=== PATIENT | female | born 1990 | race Caucasian/White ===

== ENCOUNTER 2018-12-03 19:17 | Emergency (ER) | payer MEDICAID ==
[~2018-12-03] VITALS: Ht 157.5 cm; Wt 54.5 kg
[2018-12-03 19:35] VITALS: BP 115/89
[2018-12-03 20:37] LABS: APPEARANCE,URINE CLOUDY (CLEAR); GLUCOSE, URINE (UA) NEGATIVE (NEGATIVE); KETONES,URINE NEGATIVE (NEGATIVE); LEUKOCYTE ESTERASE ,URINE MODERATE (NEGATIVE); NITRATE,URINE POSITIVE (NEGATIVE); OCCULT BLOOD,URINE NEGATIVE (NEGATIVE); PROTEIN,URINE POS 1+ (NEGATIVE)
[2018-12-03 20:38] LABS: BILIRUBIN,URINE PRELIM. POSITIVE (NEGATIVE)
[2018-12-03 20:42] LABS: BACTERIA,URINE Many /HPF (None Seen); RBC,URINE 0-2 /HPF (0-2); SQUAMOUS EPITHELIAL CELL,UR Moderate /LPF (None Seen)
[2018-12-03 20:43] LABS: CALCIUM OXALATE CRYSTALS,UR Few /LPF (None Seen); WBC,URINE 26-50 /HPF (0-5)
[2018-12-03] MEDS ORDERED: CefTRIAXone SODIUM 1 GM/VIAL IM ONE (21:15)
[2018-12-03] MEDS ORDERED: AZITHROMYCIN 250 MG TABLET PO ONE (21:15)
== END 2018-12-03 22:05 | disposition home or self-care (01) ==
LOC: EMS 19:20
DX: N39.0 Urinary tract infection, site not specified (principal); F19.10 Other psychoactive substance abuse, uncomplicated; F41.9 Anxiety disorder, unspecified; F32.9 Major depressive disorder, single episode, unspecified
CPT/HCPCS: 81001; 81025; 87077; 87086; 87186; 96372; 99283; J0696

== ENCOUNTER 2020-04-10 17:10 | Inpatient (IN) | payer MEDICAID, OTHER ==
[~2020-04-10] VITALS: Ht 160 cm; Wt 63.5 kg
[2020-04-10] MEDS ORDERED: KETOROLAC TROMETHAMINE 30 MG/ML VIAL IVP ONE (20:00)
[2020-04-10] MEDS ORDERED: ONDANSETRON HCL 4 MG/2 ML VIAL IVP ONE (20:00)
[2020-04-10] MEDS ORDERED: SODIUM CHLORIDE 0.9% 1,000 ML IV ONE (20:00)
[2020-04-10 20:42] LABS: ANION GAP 12 mmol/L (8-16); CALCIUM, TOTAL 9.6 mg/dL (8.8-10.5); CARBON DIOXIDE 20 mmol/L (22-29); CHLORIDE 107 mmol/L (98-107); CREATININE 0.83 mg/dL (0.60-1.30); GLOMERULAR FILTR. RATE CALC > 60 mL/min (>60); GLUCOSE,RANDOM 100 mg/dL (70-110); POTASSIUM 4.1 mmol/L (3.5-5.1); SODIUM SERUM 139 mmol/L (136-145); UREA NITROGEN, BLOOD 9 mg/dL (7-18)
[2020-04-10 20:47] LABS: ALANINE AMINOTRANSFERASE 43 U/L (12-78); ALBUMIN 3.4 g/dL (3.4-5.0); ALKALINE PHOSPHATASE 73 U/L (46-116); ASPARTATE AMINOTRANSFERASE 57 U/L (15-37); BILIRUBIN,TOTAL 0.7 mg/dL (0.1-1.0); TOTAL PROTEIN, SERUM 8.4 g/dL (6.4-8.2)
[2020-04-10 21:10] LABS: BASOPHILS % (AUTO) 0.5 % (0.0-2.0); EOSINOPHILS % (AUTO) 0.3 % (1.0-6.0); HEMATOCRIT 41.1 % (36-46); HEMOGLOBIN 14.5 g/dL (12.0-16.0); LYMPHOCYTES # (AUTO) 3.5 K/uL (1.0-4.8); LYMPHOCYTES % (AUTO) 32.1 % (22.0-44.0); MEAN CORPUSCULAR HEMOGLOBIN 29.9 pg (26.0-34.0); MEAN CORPUSCULAR HGB CONC 35.3 G/dL (31.0-37.0); MEAN CORPUSCULAR VOLUME 85 fL (80-100); MONOCYTES # (AUTO) 0.5 K/uL (0.1-1.0); MONOCYTES % (AUTO) 4.9 % (2.0-9.0); NEUTROPHILS # (AUTO) 6.8 K/uL (1.8-7.7); NEUTROPHILS % (AUTO) 62.2 % (40.0-70.0); PLATELET COUNT (AUTO) 256 K/uL (150-450); RED BLOOD CELL COUNT(AUTO) 4.85 MIL/uL (4.00-5.20); RED CELL DISTRIBUTION WIDTH 12.2 % (11.5-14.5)
[2020-04-10] MEDS ORDERED: ACETAMINOPHEN 325 MG TABLET PO PRN ×3 (21:15→22:30)
[2020-04-10] MEDS ORDERED: ONDANSETRON HCL 4 MG/2 ML VIAL IVP PRN (21:15)
[2020-04-10 21:20] LABS: COVID AG,FIA SOURCE NASOPHARYNGEAL
[2020-04-10] MEDS ORDERED: DICYCLOMINE HCL 10 MG CAPSULE PO PRN (22:30)
[2020-04-10] MEDS ORDERED: IBUPROFEN 600 MG TABLET PO PRN (22:30)
[2020-04-10] MEDS ORDERED: CloNIDine HCL 0.1 MG TABLET PO PRN (22:30)
[2020-04-10] MEDS ORDERED: LOPERAMIDE HCL 2 MG/15 ML SUSPENSION UDCUP PO PRN (22:30)
[2020-04-10] MEDS ORDERED: BACLOFEN 10 MG TABLET PO PRN (22:30)
[2020-04-10] MEDS ORDERED: MAG HYDROX/AL HYDROX/SIMETH ES 30 ML SUSPENSION UDCUP PO PRN ×2 (22:30)
[2020-04-10] MEDS ORDERED: BISACODYL 10 MG RECTAL RECTAL SUPPOSITORY PR PRN (22:30)
[2020-04-10] MEDS ORDERED: ZOLPIDEM TARTRATE 5 MG TABLET PO PRN (22:30)
[2020-04-10] MEDS: LORazepam 1 MG TABLET PO PRN (22:45)
[2020-04-10] MEDS: SODIUM CHLORIDE 0.45% 1,000 ML IV SCH (23:27)
[2020-04-11] MEDS: ChlordiazePOXIDE HCL 25 MG CAPSULE PO SCH ×4 (00:34→17:57)
[2020-04-11 03:39] VITALS: BP 107/73
[2020-04-11] MEDS: CloNIDine HCL 0.1 MG TABLET PO SCH ×4 (06:34→20:40)
[2020-04-11 07:56] VITALS: BP 119/72
[2020-04-11] MEDS: MULTIVITAMINS, THERAPEUTIC TABLET PO SCH (09:46)
[2020-04-11] MEDS: THIAMINE 100 MG TABLET PO SCH (09:46)
[2020-04-11] MEDS: FOLIC ACID 1 MG TABLET PO SCH (09:46)
[2020-04-11] MEDS: LORazepam 1 MG TABLET PO PRN (09:48)
[2020-04-11] MEDS ORDERED: METHADONE HCL 10 MG TABLET PO ONE (10:06)
[2020-04-11 11:30] VITALS: BP 113/64
[2020-04-11] MEDS: SODIUM CHLORIDE 0.45% 1,000 ML IV SCH (12:45)
[2020-04-11 15:48] VITALS: BP 102/61
[2020-04-11 19:43] VITALS: BP 93/51
[2020-04-12] VITALS (7 sets, daily range): BP systolic 91–114; BP diastolic 51–70
[2020-04-12] MEDS: SODIUM CHLORIDE 0.45% 1,000 ML IV SCH ×2 (00:11→13:39)
[2020-04-12] MEDS: ChlordiazePOXIDE HCL 25 MG CAPSULE PO SCH ×4 (00:11→18:34)
[2020-04-12] MEDS: CloNIDine HCL 0.1 MG TABLET PO SCH ×4 (05:41→22:00)
[2020-04-12] MEDS: MULTIVITAMINS, THERAPEUTIC TABLET PO SCH (08:36)
[2020-04-12] MEDS: FOLIC ACID 1 MG TABLET PO SCH (08:36)
[2020-04-12] MEDS: THIAMINE 100 MG TABLET PO SCH (08:36)
[2020-04-12] MEDS ORDERED: METHADONE HCL 10 MG TABLET PO ONE (09:00)
[2020-04-12 17:00] LABS: BASOPHILS % (AUTO) 1.2 % (0.0-2.0); EOSINOPHILS % (AUTO) 5.2 % (1.0-6.0); LYMPHOCYTES # (AUTO) 2.9 K/uL (1.0-4.8); LYMPHOCYTES % (AUTO) 37.3 % (22.0-44.0); MEAN CORPUSCULAR HEMOGLOBIN 29.6 pg (26.0-34.0); MEAN CORPUSCULAR HGB CONC 34.2 G/dL (31.0-37.0); MEAN CORPUSCULAR VOLUME 86 fL (80-100); MONOCYTES # (AUTO) 0.3 K/uL (0.1-1.0); MONOCYTES % (AUTO) 4.2 % (2.0-9.0); NEUTROPHILS % (AUTO) 52.1 % (40.0-70.0); PLATELET COUNT (AUTO) 215 K/uL (150-450); RED BLOOD CELL COUNT(AUTO) 4.75 MIL/uL (4.00-5.20); RED CELL DISTRIBUTION WIDTH 12.4 % (11.5-14.5)
[2020-04-12 17:21] LABS: ALANINE AMINOTRANSFERASE 35 U/L (12-78); ALBUMIN 2.8 g/dL (3.4-5.0); ALKALINE PHOSPHATASE 62 U/L (46-116); ANION GAP 9 mmol/L (8-16); ASPARTATE AMINOTRANSFERASE 22 U/L (15-37); BILIRUBIN,TOTAL 0.3 mg/dL (0.1-1.0); CALCIUM, TOTAL 8.9 mg/dL (8.8-10.5); CARBON DIOXIDE 25 mmol/L (22-29); CHLORIDE 105 mmol/L (98-107); CREATININE 0.92 mg/dL (0.60-1.30); GLOMERULAR FILTR. RATE CALC > 60 mL/min (>60); GLUCOSE,RANDOM 118 mg/dL (70-110); POTASSIUM 4.1 mmol/L (3.5-5.1); SODIUM SERUM 139 mmol/L (136-145); TOTAL PROTEIN, SERUM 6.8 g/dL (6.4-8.2); UREA NITROGEN, BLOOD 11 mg/dL (7-18)
[2020-04-13] MEDS: ChlordiazePOXIDE HCL 25 MG CAPSULE PO SCH ×4 (01:01→18:12)
[2020-04-13] MEDS: SODIUM CHLORIDE 0.45% 1,000 ML IV SCH ×2 (03:31→16:29)
[2020-04-13 03:54] VITALS: BP 93/53
[2020-04-13] MEDS: CloNIDine HCL 0.1 MG TABLET PO SCH ×4 (06:00→22:00)
[2020-04-13 07:20] VITALS: BP 96/58
[2020-04-13] MEDS: MULTIVITAMINS, THERAPEUTIC TABLET PO SCH (08:37)
[2020-04-13] MEDS: FOLIC ACID 1 MG TABLET PO SCH (08:38)
[2020-04-13] MEDS: THIAMINE 100 MG TABLET PO SCH (08:38)
[2020-04-13] MEDS: LORazepam 1 MG TABLET PO PRN (08:42)
[2020-04-13] MEDS ORDERED: METHADONE HCL 10 MG TABLET PO ONE (09:00)
[2020-04-13 11:18] VITALS: BP 96/60
[2020-04-13] MEDS: MAGNESIUM HYDROXIDE SUSPENSION 30 ML UDCUP PO PRN (13:36)
[2020-04-13 15:30] VITALS: BP 95/63
[2020-04-13 19:51] VITALS: BP 95/46
[2020-04-13 23:35] VITALS: BP 91/48
[2020-04-14] MEDS: ChlordiazePOXIDE HCL 25 MG CAPSULE PO SCH ×4 (00:57→18:15)
[2020-04-14] MEDS: TraZODone HCL 50 MG TABLET PO PRN ×2 (01:02→21:42)
[2020-04-14 04:39] VITALS: BP 104/49
[2020-04-14] MEDS: CloNIDine HCL 0.1 MG TABLET PO SCH ×4 (05:15→21:42)
[2020-04-14] MEDS: SODIUM CHLORIDE 0.45% 1,000 ML IV SCH ×2 (06:15→21:43)
[2020-04-14 07:34] VITALS: BP 105/48
[2020-04-14] MEDS: MULTIVITAMINS, THERAPEUTIC TABLET PO SCH (08:27)
[2020-04-14] MEDS: THIAMINE 100 MG TABLET PO SCH (08:27)
[2020-04-14] MEDS: FOLIC ACID 1 MG TABLET PO SCH (08:27)
[2020-04-14] MEDS: LORazepam 1 MG TABLET PO PRN (08:29)
[2020-04-14] MEDS: MAGNESIUM HYDROXIDE SUSPENSION 30 ML UDCUP PO PRN (08:48)
[2020-04-14] MEDS ORDERED: METHADONE HCL 10 MG TABLET PO ONE (09:00)
[2020-04-14 11:20] VITALS: BP 94/45
[2020-04-14 15:59] VITALS: BP 94/47
[2020-04-14 20:00] VITALS: BP 106/57
[2020-04-15] VITALS (7 sets, daily range): BP systolic 91–104; BP diastolic 38–57
[2020-04-15] MEDS: ChlordiazePOXIDE HCL 25 MG CAPSULE PO SCH ×2 (00:29→08:31)
[2020-04-15] MEDS: MULTIVITAMINS, THERAPEUTIC TABLET PO SCH (08:22)
[2020-04-15] MEDS: THIAMINE 100 MG TABLET PO SCH (08:22)
[2020-04-15] MEDS: FOLIC ACID 1 MG TABLET PO SCH (08:23)
[2020-04-15] MEDS ORDERED: METHADONE HCL 10 MG TABLET PO ONE (09:00)
[2020-04-15] MEDS: LORazepam 1 MG TABLET PO PRN ×2 (10:48→17:07)
[2020-04-15] MEDS: CloNIDine HCL 0.1 MG TABLET PO SCH ×3 (12:00→21:13)
[2020-04-15] MEDS: TraZODone HCL 50 MG TABLET PO PRN (19:53)
[2020-04-16 04:52] VITALS: BP 111/52
[2020-04-16] MEDS: CloNIDine HCL 0.1 MG TABLET PO SCH ×4 (05:29→21:20)
[2020-04-16 07:56] VITALS: BP 112/54
[2020-04-16] MEDS: FOLIC ACID 1 MG TABLET PO SCH (08:09)
[2020-04-16] MEDS: MULTIVITAMINS, THERAPEUTIC TABLET PO SCH (08:10)
[2020-04-16] MEDS: THIAMINE 100 MG TABLET PO SCH (08:10)
[2020-04-16] MEDS ORDERED: HydrOXYzine PAMOATE 50 MG CAPSULE PO PRN (08:45)
[2020-04-16] MEDS ORDERED: GABAPENTIN 100 MG CAPSULE PO PRN (09:30)
[2020-04-16] MEDS: HydrOXYzine PAMOATE 50 MG CAPSULE PO PRN (09:49)
[2020-04-16 11:19] VITALS: BP 111/60
[2020-04-16 20:02] VITALS: BP 94/48
[2020-04-16] MEDS: TraZODone HCL 50 MG TABLET PO PRN (21:21)
[2020-04-17 04:36] VITALS: BP 95/47
[2020-04-17] MEDS: CloNIDine HCL 0.1 MG TABLET PO SCH ×2 (05:50→12:00)
[2020-04-17] MEDS: MULTIVITAMINS, THERAPEUTIC TABLET PO SCH (08:03)
[2020-04-17] MEDS: THIAMINE 100 MG TABLET PO SCH (08:03)
[2020-04-17] MEDS: FOLIC ACID 1 MG TABLET PO SCH (08:03)
[2020-04-17] MEDS: HydrOXYzine PAMOATE 50 MG CAPSULE PO PRN (08:05)
[2020-04-17 08:16] VITALS: BP 112/59
[2020-04-17] MEDS ORDERED: FOLI-130 PO (09:58)
[2020-04-17] MEDS ORDERED: ACET-2247 PO (09:59)
[2020-04-17] MEDS ORDERED: MULT-248 PO (09:59)
[2020-04-17] MEDS ORDERED: HYD50 PO (10:00)
[2020-04-17] MEDS ORDERED: LOPERAMIDE HCL 2 MG CAPSULE PO PRN (10:15)
== END 2020-04-17 15:25 | DRG 897 ==
LOC: EMS 17:12 → 6S 22:18 → 5S 22:18 → UNDOADMIN 22:18 → 6S 04-14 19:45
PROVIDERS: ADMIT Hospitalist; ATTEND Hospitalist
DX: F11.23 Opioid dependence with withdrawal (principal); Z20.822 Contact with and (suspected) exposure to COVID-19; F17.210 Nicotine dependence, cigarettes, uncomplicated; F10.239 Alcohol dependence with withdrawal, unspecified; F43.10 Post-traumatic stress disorder, unspecified
CPT/HCPCS: 87426; 99285; J1885; J2405